=== PATIENT | female | born 1985 | race Two or more races ===

== ENCOUNTER 2022-05-12 03:54 | Inpatient (IN) | payer BC ==
[2022-05-12 04:40] VITALS: BMI 35.3
[2022-05-12] MEDS ORDERED: Misoprostol 200 MCG TAB PR PRN (05:37)
[2022-05-12] MEDS ORDERED: Promethazine HCl 25 MG/ML VIAL IM PRN ×2 (05:37→19:40)
[2022-05-12] MEDS ORDERED: Carboprost 250 MCG/ML AMP IM PRN (05:37)
[2022-05-12] MEDS ORDERED: hydrALAZINE 20 MG/ML VIAL SLOW IVP PRN ×2 (05:37→19:40)
[2022-05-12] MEDS ORDERED: Ibuprofen 800 MG TAB PO PRN (05:37)
[2022-05-12] MEDS ORDERED: Acetaminophen 500 MG TAB PO PRN (05:37)
[2022-05-12] MEDS ORDERED: Diphenoxylate HCl/Atropine Tablet PO PRN (05:37)
[2022-05-12] MEDS ORDERED: Methylergonovine 0.2 MG/ML VIAL IM PRN (05:37)
[2022-05-12] MEDS ORDERED: Lidocaine 1% (PF) 30 ML VIAL SC PRN (05:37)
[2022-05-12] MEDS ORDERED: Ondansetron PF 4 MG/2 ML Vial IVP PRN ×2 (05:37→19:40)
[2022-05-12] MEDS ORDERED: Penicillin G Potassium 5 MILL.UNITS in Sodium Chloride 0.9% 100 ML IVPB SCH (05:45)
[2022-05-12] MEDS ORDERED: NS w/ Oxytocin 30 units 500 ML IV SCH ×3 (05:45→19:40)
[2022-05-12 06:02] LABS: Hemoglobin 10.2 g/dL (12.0-15.5); Mean Corpuscular Hemoglobin 23.6 pg (27.0-33.0); Mean Corpuscular Volume 73.8 fl (81.6-98.3); Mean Platelet Volume 9.9 fl (7.4-10.4); Platelet Count 263 10x3/uL (150-450); RBC Distribution Width 16.4 % (11.5-14.5); Red Blood Cell (RBC) Count 4.32 10x6/uL (3.90-5.03); White Blood Cell (WBC) Count 15.2 10x3/uL (3.5-10.5)
[2022-05-12 06:19] LABS: Hep B Surf Ag Non-Reactive S/CO (NonReactive); Syphilis Antibody Nonreactive (Nonreactive)
[2022-05-12 06:26] LABS: HBSAg Index 0.17 S/CO (0-0.99)
[2022-05-12] MEDS ORDERED: Fentanyl 2 mcg/Bup 0.1% Cadd 100 ML ONE ×2 (08:53→15:26)
[2022-05-12] MEDS ORDERED: Penicillin G 2.5 MILL.units 50 ML ONE (09:03)
[2022-05-12] MEDS: Penicillin G 2.5 MILL.units 2.5 MILL.UNITS in Premix Bag 1 BAG IVPB SCH ×3 (09:52→19:40)
[2022-05-12] MEDS ORDERED: Benzocaine-Menthol 82.5 ML CAN TOP PRN (19:40)
[2022-05-12] MEDS ORDERED: Misoprostol 200 MCG TAB VAG PRN (19:40)
[2022-05-12] MEDS ORDERED: Zolpidem Tartrate 5 MG TAB PO PRN (19:40)
[2022-05-12] MEDS: Lactated Ringer's 1,000 ML IV SCH (19:40)
[2022-05-12] MEDS ORDERED: diphenhydrAMINE 25 MG CAP PO PRN (19:40)
[2022-05-12] MEDS ORDERED: Lanolin Ointment 7 GM TUBE TOP PRN (19:40)
[2022-05-12] MEDS ORDERED: Bisacodyl 10 MG SUPP PR PRN (19:40)
[2022-05-12] MEDS ORDERED: Preparation H Ointment 28 GM TUBE PR PRN (19:40)
[2022-05-12] MEDS ORDERED: Milk Of Magnesia 30 ML UDCUP PO PRN (19:40)
[2022-05-12] MEDS ORDERED: Ferrous Sulfate 325 MG TAB PO SCH (20:00)
[2022-05-12] MEDS: Ibuprofen 800 MG TAB PO SCH (21:15)
[2022-05-12] MEDS: Docusate 100 MG CAP PO SCH (21:15)
[2022-05-13] MEDS: HYDROcodone/Acetaminophen 5/325 mg Tablet PO PRN ×3 (01:08→22:25)
[2022-05-13 04:27] LABS: Hemoglobin 8.4 g/dL (12.0-15.5); Mean Corpuscular HGB CONC 30.9 g/dL (32.0-36.0); Mean Corpuscular Hemoglobin 23.4 pg (27.0-33.0); Mean Corpuscular Volume 75.8 fl (81.6-98.3); Platelet Count 234 10x3/uL (150-450); RBC Distribution Width 16.4 % (11.5-14.5); Red Blood Cell (RBC) Count 3.59 10x6/uL (3.90-5.03); White Blood Cell (WBC) Count 18.9 10x3/uL (3.5-10.5)
[2022-05-13] MEDS: Ibuprofen 800 MG TAB PO SCH ×3 (05:52→21:24)
[2022-05-13] MEDS: Ferrous Sulfate 325 MG TAB PO SCH ×2 (08:57→18:42)
[2022-05-13] MEDS: Docusate 100 MG CAP PO SCH ×2 (08:57→21:24)
[2022-05-13] MEDS: Prenatal Vitamin 1 TAB PO SCH (08:57)
[2022-05-13] MEDS ORDERED: Simethicone Chewable 80 MG TAB PO PRN (14:41)
[2022-05-13] MEDS ORDERED: Polyethylene Glycol 3350 17 GM Packet PER TUBE SCH (15:00)
[2022-05-13] MEDS ORDERED: Measles/Mumps/Rubella 10 MCG/0.5 ML VIAL SC ONE (19:40)
[2022-05-13] MEDS ORDERED: Boostrix 0.5 ML (Tdap) VIAL IM ONE (19:40)
[2022-05-14] MEDS: Ibuprofen 800 MG TAB PO SCH ×2 (07:07→13:34)
[2022-05-14 07:35] VITALS: BP 137/70; TEMP 98.2
[2022-05-14] MEDS ORDERED: Polyethylene Glycol 3350 17 GM Packet PER TUBE SCH (09:00)
[2022-05-14] MEDS: Prenatal Vitamin 1 TAB PO SCH (09:21)
[2022-05-14] MEDS: Docusate 100 MG CAP PO SCH (09:21)
[2022-05-14] MEDS: Ferrous Sulfate 325 MG TAB PO SCH ×2 (09:21→18:27)
== END 2022-05-14 18:30 | disposition home or self-care (01) | DRG 807 ==
LOC: CSHLD/OP 03:54 → CSHLD 05:51 → CSHPP 20:15
PROVIDERS: ADMIT Obstetrics & Gynecology; ATTEND Obstetrics & Gynecology
PROC: 10E0XZZ Delivery of Products of Conception, External Approach (ICD-10-PCS; principal; 2022-05-12)
PROC: 0W8NXZZ Division of Female Perineum, External Approach (ICD-10-PCS; 2022-05-12)
DX: O42.02 Full-term premature rupture of membranes, onset of labor within 24 hours of rupture (principal); Z37.0 Single live birth; Z3A.37 37 weeks gestation of pregnancy; E03.9 Hypothyroidism, unspecified; Z86.16 Personal history of COVID-19; Z20.822 Contact with and (suspected) exposure to COVID-19; Z87.442 Personal history of urinary calculi; D64.9 Anemia, unspecified; O99.824 Streptococcus B carrier state complicating childbirth; O99.284 Endocrine, nutritional and metabolic diseases complicating childbirth; O99.02 Anemia complicating childbirth; O34.13 Maternal care for benign tumor of corpus uteri, third trimester; D25.9 Leiomyoma of uterus, unspecified
CPT/HCPCS: 36415; 51702; 85027; 86780; 86850; 86900; 86901; 87340; 99285; J2405; J2540; J2590

== ENCOUNTER 2022-05-23 17:34 | Inpatient (IN) | payer BC ==
[2022-05-23] MEDS ORDERED: hydrALAZINE 20 MG/ML VIAL ONE (17:59)
[2022-05-23] MEDS ORDERED: Magnesium 2 GM/50 ML BAG (IN WATER) ONE (18:23)
[2022-05-23] MEDS ORDERED: Metoclopramide HCl 10 MG/2 ML VIAL ONE (18:24)
[2022-05-23 18:26] LABS: #Basophils 0.1 10x3/uL (0.0-0.2); #Eosinphils 0.2 10x3/uL (0.0-0.5); #Monocytes 0.9 10x3/uL (0.0-1.1); #Neutrophils 8.2 10x3/uL (1.5-8.4); %Basophils 0.7 % (0.0-2.0); %Lymphocytes 21.3 % (18.0-47.0); %Monocytes 7.1 % (0.0-10.0); %Neutrophils 68.2 % (40.0-75.0); Hemoglobin 10.5 g/dL (12.0-15.5); Mean Corpuscular HGB CONC 31.3 g/dL (32.0-36.0); Mean Corpuscular Hemoglobin 23.6 pg (27.0-33.0); Mean Corpuscular Volume 75.5 fl (81.6-98.3); Mean Platelet Volume 9.6 fl (7.4-10.4); Platelet Count 345 10x3/uL (150-450); Red Blood Cell (RBC) Count 4.45 10x6/uL (3.90-5.03)
[2022-05-23 18:35] LABS: INR-International Normal Ratio 0.9; PTT 27.1 sec (22.0-33.0); Prothrombin Time 9.8 sec (9.5-12.1)
[2022-05-23 18:50] LABS: ALT (SGPT) 39 U/L (8-55); AST (SGOT) 21 U/L (5-34); Albumin 3.6 g/dL (3.5-5.0); Alkaline Phosphatase 92 U/L (40-110); Anion Gap 14 mmol/L (10-20); BUN (Urea Nitrogen) 15 mg/dL (7.0-18.7); Bilirubin, Total 0.4 mg/dL (0.2-1.2); Calc. Creatinine Clearance 0 mL/min (70-130); Calcium 9.3 mg/dL (7.8-10.44); Carbon Dioxide 23 mmol/L (22-29); Chloride 106 mmol/L (98-107); Estimated GFR 97; Globulin 3.4 g/dL (2.4-3.5); Glucose 89 mg/dL (70-105); Lipase 30 U/L (8-78); Magnesium 1.7 mg/dL (1.6-2.6); Potassium 3.7 mmol/L (3.5-5.1); Sodium 139 mmol/L (136-145)
[2022-05-23 19:04] LABS: Creatinine, Urine 59.71 mg/dL (47-110)
[2022-05-23 19:05] LABS: Bilirubin Neg (Negative); Blood, Urine 150 (Negative); Glucose, Urine (Dipstick) Normal (Negative); Ketone, Urine Negative (Negative); Leukocyte 100 (Negative); Nitrite Negative (Negative); Protein, Urine (Dipstick) Negative (Neg-Trace); Urobilinogen Normal mg/dL (Less than 2)
[2022-05-23 19:07] LABS: Clarity Clear (Clear)
[2022-05-23] MEDS ORDERED: Fentanyl 100 MCG/2 ML VIAL ONE (19:10)
[2022-05-23 19:13] LABS: Squamous Epithelial 0-3 HPF (0-3); WBC/HPF 0-3 HPF (0-3)
[2022-05-23 19:14] LABS: Bacteria/HPF Rare-Few HPF (None Seen)
[2022-05-23] MEDS: Magnesium Sulfate 20 gm/500 ml 20 GM/500 ML BAG IVPB SCH (20:52)
[2022-05-23] MEDS ORDERED: Calcium Gluc 4.6 MEQ/10 ML (100 MG/ML) SLOW IVP PRN (21:02)
[2022-05-23] MEDS ORDERED: Fentanyl 100 MCG/2 ML VIAL SLOW IVP PRN (21:02)
[2022-05-23] MEDS ORDERED: hydrALAZINE 20 MG/ML VIAL SLOW IVP PRN ×3 (21:02)
[2022-05-23] MEDS ORDERED: Promethazine HCl 25 MG/ML VIAL IM PRN (21:02)
[2022-05-23] MEDS ORDERED: Lorazepam 2 MG/ML VIAL SLOW IVP PRN (21:02)
[2022-05-23] MEDS ORDERED: Ondansetron PF 4 MG/2 ML Vial IVP PRN (21:02)
[2022-05-23 21:32] VITALS: BMI 33.5
[2022-05-23] MEDS ORDERED: NIFEdipine XL 30 MG TAB PO SCH (21:45)
[2022-05-24] MEDS ORDERED: Meperidine HCl/PF 25 MG/ML VIAL ONE ×2 (01:57→01:58)
[2022-05-24] MEDS ORDERED: Meperidine HCl/PF 25 MG/ML VIAL SLOW IVP SCH (02:00)
[2022-05-24 06:14] LABS: Magnesium 5.2 mg/dL (1.6-2.6)
[2022-05-24] MEDS: Magnesium Sulfate 20 gm/500 ml 20 GM/500 ML BAG IVPB SCH (07:03)
[2022-05-24] MEDS: diphenhydrAMINE 50 MG/ML VIAL IVP PRN ×3 (09:20→13:16)
[2022-05-24] MEDS: Metoclopramide HCl 10 MG/2 ML VIAL IVP PRN ×4 (09:20→13:50)
[2022-05-24] MEDS ORDERED: diphenhydrAMINE 50 MG/ML VIAL ONE (13:18)
[2022-05-24] MEDS ORDERED: Fioricet 325/50/40 mg Tablet PO SCH (14:00)
[2022-05-24] MEDS: Fioricet 325/50/40 mg Tablet PO SCH ×2 (17:54→21:43)
[2022-05-24] MEDS ORDERED: NIFEdipine XL 30 MG TAB PO SCH (21:00)
[2022-05-25] MEDS: Fioricet 325/50/40 mg Tablet PO SCH ×2 (03:54→08:23)
[2022-05-25 08:04] VITALS: BP 115/69; TEMP 98.2
== END 2022-05-25 10:15 | disposition home or self-care (01) | DRG 776 ==
LOC: CSHERS 17:34 → CSHLD 21:19 → CSHPP 05-24 16:10
PROVIDERS: ADMIT Obstetrics & Gynecology; ATTEND Obstetrics & Gynecology
DX: O14.15 Severe pre-eclampsia, complicating the puerperium (principal); E03.9 Hypothyroidism, unspecified; Z87.442 Personal history of urinary calculi; M54.50 Low back pain, unspecified; O99.285 Endocrine, nutritional and metabolic diseases complicating the puerperium; O99.893 Other specified diseases and conditions complicating puerperium
CPT/HCPCS: 36415; 70450; 80053; 81003; 81015; 82570; 83690; 83735; 84156; 84443; 85025; 85610; 85730; 93005; 94760; 96365; 96367; 96375; 99285; J0360; J1200; J2175; J2405; J2765; J3010; J3475